=== PATIENT | female | born 1990 ===

== ENCOUNTER 2017-01-24 20:20 | Emergency (ER) | payer BC, OTHER ==
[2017-01-24 20:34] VITALS: BP 112/66; PULSE 90; RESP 18; TEMP 97.8; O2SAT 97
--- NOTE | 2017-01-24 21:39 | C.PDOC ---
History Of Present Illness 27 year old female presents to the ED with complaints of a diffuse itchy rash to her chest, upper back, and arms for the past 5 days. Patient reports that the rash comes and goes and moves to different area. Denies fever, vomiting, difficulty swallowing, difficulty breathing, or any other complaints at this time. Time Seen by Provider: 01/24/17 21:03 Chief Complaint (Nursing): Abnormal Skin Integrity History Per: Patient History/Exam Limitations: no limitations Onset/Duration Of Symptoms: Days Current Symptoms Are (Timing): Still Present Quality Of Symptoms: Itching Severity: Mild Past Medical History Reviewed: Historical Data, Nursing Documentation, Vital Signs Vital Signs: Last Vital Signs Temp 97.8 F 01/24/17 20:31 Pulse 90 01/24/17 20:31 Resp 18 01/24/17 20:31 BP 112/66 01/24/17 20:31 Pulse Ox 97 01/24/17 21:53 - Medical History PMH: No Chronic Diseases Family History: States: No Known Family Hx - Social History Hx Tobacco Use: No Hx Alcohol Use: No Hx Substance Use: No - Immunization History Hx Tetanus Toxoid Vaccination: Yes Hx Influenza Vaccination: Yes Hx Pneumococcal Vaccination: No Review Of Systems Except As Marked, All Systems Reviewed And Found Negative. Constitutional: Negative for: Fever ENT: Negative for: Mouth Swelling, Throat Swelling Respiratory: Negative for: Shortness of Breath Gastrointestinal: Negative for: Vomiting, Abdominal Pain, Diarrhea Skin: Positive for: Rash Neurological: Negative for: Weakness, Numbness Physical Exam - Physical Exam Appears: Non-toxic, No Acute Distress Skin: Warm, Dry, Rash (+Urticarial rash to chest, arms, and upper back) Head: Atraumatic, Normacephalic Eye(s): bilateral: Normal Inspection, PERRL, EOMI Nose: Normal Oral Mucosa: Moist Tongue: Normal Appearing, No Swelling Lips: Normal Appearing, No Swelling Throat: Normal, No Erythema Neck: Normal ROM, Supple Chest: Symmetrical, No Deformity Cardiovascular: Rhythm Regular, No Friction Rub, No Murmur Respiratory: Normal Breath Sounds, No Accessory Muscle Use, No Rales, No Rhonchi , No Stridor, No Wheezing Gastrointestinal/Abdominal: Soft, No Tenderness Extremity: Normal ROM, No Swelling Neurological/Psych: Oriented x3, Normal Speech, Normal Cognition, Normal Motor Gait: Steady ED Course And Treatment O2 Sat by Pulse Oximetry: 97 (Room air) Pulse Ox Interpretation: Normal Medical Decision Making Medical Decision Making: Plan: -Benadryl -Pepcid -Prednisone -Reassess Progress: Upon reevaluation, patient is resting comfortably, tolerating PO, has no shortness of breath, has no intra-oral swelling, no stridor. Patient notes that pruritus has improved.. Patient was advised to avoid potential allergens, and to follow up with physician in 1-2 days. Disposition - Disposition Referrals: Santos Pickard MD [Medical Doctor] - Disposition: HOME/ ROUTINE Disposition Time: 22:00 Condition: GOOD Additional Instructions: Follow up with the medical doctor within 1-2 days. Return if worsened. Prescriptions: DiphenhydrAMINE [Benadryl] 25 mg PO Q4H PRN #30 cap PRN Reason: Itching / Pruritus predniSONE [Prednisone] 20 mg PO BID #10 tab Instructions: Urticaria (ED) - Clinical Impression Clinical Impression: Urticaria - PA / ADAPTED PHYSICAL EDUCATION AIDE / Resident Statement MD/DO has reviewed & agrees with the documentation as recorded. - Scribe Statement The provider has reviewed the documentation as recorded by the Scribe Kenyon Maguire. All medical record entries made by the Scribe were at my direction and personally dictated by me. I have reviewed the chart and agree that the record accurately reflects my personal performance of the history, physical exam, medical decision making, and the department course for this patient. I have also personally directed, reviewed, and agree with the discharge instructions and disposition.
== END 2017-01-24 22:17 | disposition home or self-care (01) ==
LOC: C.ER 20:20
DX: L50.9 Urticaria, unspecified (principal)